=== PATIENT | female | born 1970 | race Caucasian/White ===

== ENCOUNTER 2018-04-02 11:08 | Emergency (ER) | payer OTHER ==
--- NOTE | 2018-04-02 11:11 | ED Physician Documentation ---
General Adult - HISTORIAN Historian: patient - HPI Stated Complaint: right shoulder pain and swelling Chief Complaint: Shoulder Injury/ Pain Onset: days ago (2) Timing: still present Severity: mild Further Comments: yes (She states she started having right shoulder pain yesterday without injury per her report. She states she has pain in the upper shoulder and she has decreased ROM (she is not able to actively lift her right shouler above her breast per her statement) She states the pain is sharp. She did try a flexeril she had at home with no relief. She has a history of neck surgery in 2008 although denies any nerve issues post surgery. She states she has noticed some swelling in her fingers.) Last known Well Code/Unknown Code: Unknown - ROS CONST: no problems MS/SKIN/LYMPH: none NEURO/PSYCH: denies: headache - PAST HX Past History: none Surgeries/Procedures: hysterectomy, other (knee and neck ) Immunizations: UTD Allergies/Adverse Reactions: Allergies Allergy/AdvReac Type Severity Reaction Status Date / Time No Known Allergies Allergy Verified 04/02/18 11:18 Home Medications: Ambulatory Orders Medication Instructions Recorded Cyclobenzaprine HCl [Flexeril] 10 mg PO TID #10 tablet 10/14/14 Estradiol [Vivelle-Dot] 1 patch TOP DAILY 04/02/18 Prasterone (Dhea)/Calcium Carb 1 tab PO DAILY 04/02/18 [Dhea 10 mg Tablet] Progesterone [Progesterone] 1 vial IM WEEK 04/02/18 - SOCIAL HX Smoking History: cigarettes Alcohol Use: none Drug Use: none - FAMILY HX Family History: No - VITAL SIGNS Vital Signs: Vital Signs Temp Pulse Resp BP Pulse Ox 114/75 10/14/14 14:13 - REVIEWED ASSESSMENTS Nursing Assessment Reviewed: Yes Vitals Reviewed: Yes Progress - Progress Progress: 1225: results discussed and plan. Agreeable DG ED Results Lab/Radiology - Radiology Radiology Impressions: Examination: Plain film right shoulder History: RT SHOULDER, PAIN IN RT SHOULDER AFTER WAKING UP YESTERDAY, NO KNOWN INJURY (Hx) Comparison exams: None provided Findings: 3 views of the right shoulder demonstrate normal cortical margins. No evidence for fracture or dislocation. Acromioclavicular joint degenerative changes. Impression: No acute osseous process. Electronically signed on Apr 02, 2018 12:22:47 PM CDT by: Josh Harper General Adult Physical Exam - PHYSICAL EXAM GENERAL APPEARANCE: no distress EENT: eye inspection normal NECK: normal inspection RESPIRATORY: no resp distress, chest non-tender, breath sounds normal CVS: reg rate & rhythm, heart sounds normal, equal pulses, no murmur ABDOMEN: soft BACK: normal inspection SKIN: warm/dry, normal color EXTREMITIES: non-tender, other (right shoulder with decreased ROM 30 degrees approx with pain then states she is not able to elevate any further due to pain. She is able to move her hand and pulses + sensation + and cap refill + ) NEURO: oriented X3, CN's nml as tested, motor nml, sensation nml, mood/affect nml, cognition normal Discharge Clincal Impression: Shoulder pain, right Qualifiers: Chronicity: acute Qualified Code(s): M25.511 - Pain in right shoulder Referrals: Monse Zavala MD [Primary Care Provider] - 2 Days Comments: 1. Home meds as needed for pain 2. Sling to arm as needed for comfort 3. Ice/ Heat 4. Call PCP for follow up in 2-4 days 5. Return to ER for further concerns Condition: Stable Disposition: 01 HOME, SELF-CARE Decision to Admit: NO Date of Decison to Admit: 04/02/18 Decision Time: 12:32
[2018-04-02 11:18] VITALS: BP 114/70
[2018-04-02] MEDS ORDERED: KETOROLAC TROMETHAMINE 60 MG/2 ML VIAL IM ONE (12:25)
[2018-04-02] MEDS ORDERED: methylPREDNISolone ACETATE 80 MG/ML VIAL IM ONE (12:27)
--- NOTE | 2018-04-02 18:15 | Diagnostic Imaging Report ---
FRANSISCA SALAZAR [facility] [address] [facility] [address] [address] Report Submission Date: Apr 02, 2018 12:22:47 PM CDT Patient Study Name: SAI SALAZAR Date: Apr 02, 2018 11:49:58 AM CDT Modality Type: DX Gender: F Description: SHOULDER : 66 Institution: [facility] Physician: FRANSISCA SALAZAR Examination: Plain film right shoulder History: RT SHOULDER, PAIN IN RT SHOULDER AFTER WAKING UP YESTERDAY, NO KNOWN INJURY (Hx) Comparison exams: None provided Findings: 3 views of the right shoulder demonstrate normal cortical margins. No evidence for fracture or dislocation. Acromioclavicular joint degenerative changes. Impression: No acute osseous process. Electronically signed on Apr 02, 2018 12:22:47 PM CDT by: Josh HORVATH
== END 2018-04-02 12:51 | disposition home or self-care (01) ==
LOC: ED 11:08
DX: M25.511 Pain in right shoulder (principal)
CPT/HCPCS: 73030; J1040; J1885; 96372; 99284

== ENCOUNTER 2018-10-26 16:25 | Emergency (ER) | payer OTHER ==
[2018-10-26 16:46] VITALS: BP 133/83
--- NOTE | 2018-10-26 16:53 | ED Physician Documentation ---
Lower Extremity Problem - HPI Stated Complaint: L foot pain Chief Complaint: Lower Extremity Problem Additional Information: Patient presents to the ED with a 1 month history of left lateral ankle pain and swelling which waxes/wanes. Patient denies any injury. She states the pain is worsening causing difficulty with ambulation. The swelling waxes and wanes. She had an US yesterday which ruled out DVT. Location of Injury: L ankle Onset: days ago (30 days) Timing: still present, worse Duration: constant Where: home Severity: moderate Quality: pain, swelling, tenderness Exacerbated By: walking Relieved By: rest Associated Symptoms: denies: chest pain, shortness of breath - ROS CONST: no problems MS/SKIN/LYMPH: none GI/: none EYES/ENT: none - PAST HX Past History: none PE Risk Factors: none Surgeries/Procedures: none Allergies/Adverse Reactions: Allergies Allergy/AdvReac Type Severity Reaction Status Date / Time No Known Drug Allergies Allergy Verified 10/26/18 16:47 Home Medications: Ambulatory Orders Medication Instructions Recorded predniSONE [Deltasone] 20 mg PO DIRECTED #13 tablet 10/26/18 - SOCIAL HX Smoking History: non-smoker Alcohol Use: none Drug Use: none - FAMILY HX Family History: none - VITAL SIGNS Vital Signs: Vital Signs Temp Pulse Resp BP Pulse Ox 98.2 F 90 16 133/83 99 10/26/18 16:40 10/26/18 16:40 10/26/18 16:40 10/26/18 16:40 10/26/18 16:40 - REVIEWED ASSESSMENTS Nursing Assessment Reviewed: Yes Vitals Reviewed: Yes ED Results Lab/Radiology - Orders Orders: ED Orders Category Date Time Status LEFT ANKLE [ANKLE 3 VIEWS OR MORE] [RAD] Stat Exams 10/26/18 Ordered Lower Extremity Problem - EXAM General Appearance: no distress Hips: bilateral hip: non-tender, normal inspection Legs: bilateral: non-tender, normal inspection Knees: bilateral: non-tender, normal inspection Ankle: left: no evidence of injury, bone tenderness (left lateral under malleoli), pain, soft tissue tenderness, swelling Foot: bilateral foot: non-tender, normal inspection Neuro/Tendon: normal sensation, normal motor functions, no evidence tendon injury EENT: IGNACIO RESPIRATORY: no resp distress, chest non-tender, breath sounds normal CVS: reg rate & rhythm, heart sounds normal JOINT: nml ROM, Nml gait/weight bearing VASCULAR: no vascular compromise, pulses full/equal NEURO/PSYCH: oriented X3 Discharge Clincal Impression: Bone spur of ankle Prescriptions: predniSONE [Deltasone] 20 mg PO DIRECTED #13 tablet Referrals: Monse Zavala MD [Primary Care Provider] - 2 Days Additional Instructions: 1. Take Prednisone as directed 2. Follow up with PCP within 1 week 3. You may benefit from Podiatry referral 4. Return to ER for new or worsening symptoms. Condition: Stable Disposition: 01 HOME, SELF-CARE Decision to Admit: NO Date of Decison to Admit: 10/26/18 Decision Time: 17:19
--- NOTE | 2018-10-26 17:24 | Diagnostic Imaging Report ---
KELLEY KING [facility] [address] [facility] [address] [address] Report Submission Date: Oct 26, 2018 5:10:50 PM BLANKET WASHER Patient Study Name: SAI SALAZAR Date: Oct 26, 2018 4:52:27 PM BLANKET WASHER Modality Type: DX Gender: F Description: ANKLE 3 VIEWS OR MORE : 66 Institution: [facility] Physician: KELLEY KING HISTORY: 48-year-old female with left ankle pain and swelling, no known injury COMPARISON: None available TECHNIQUE: 3 views of the left ankle were performed. FINDINGS: No acute fracture or dislocation about the left ankle. The mortise is intact. Plantar calcaneal bone spur and Achilles insertion enthesophyte are incidentally noted. IMPRESSION: No acute fracture of the left ankle. Electronically signed on Oct 26, 2018 5:10:50 PM BLANKET WASHER by: Panchito HORVATH
== END 2018-10-26 17:36 | disposition home or self-care (01) ==
LOC: ED 16:25
DX: M77.32 Calcaneal spur, left foot (principal)
CPT/HCPCS: 73610; 99283